=== PATIENT | female | born 1945 | race Caucasian/White ===

== ENCOUNTER → 2017-05-21 | Outpatient (CLI) | payer OTHER ==
[~2017-05-21] MED LIST: ASPIR 8181 M1; CARDURA4 MG; DIOVAN 80 MG TA80 M1; FLAGYL500 MG; TOPROL XL100 MG; XALATAN2.5 ML
--- NOTE | ~2017-05-21 | EKG ---
[address] [address] ELECTROCARDIOGRAM REPORT Name: CONNORBROWN Room #: REG RACHEAL Chaney#: [id number] Admission: 05/21/17 Attend Phys: Deondre Ware, Discharge: Date of : 43 Report #: [id number] THIS REPORT FOR: //name// [facility] Test Date: 2017-05-21 Test Time: 06:19:46 Pat Name: BROWN RYAN Department: Room: Gender: F Disc Jockey: LEIGH ANN : 1945 Requested By: Deondre Ware Order Number: [id number] MD: Corey Garcia Measurements Intervals [place] Rate: 58 P: 41 RI: 158 QRS: -41 QRSD: 93 T: 3 QT: 405 QTc: 398 Interpretive Statements Sinus rhythm Inferolateral infarct, old No previous ECG available for comparison Electronically Signed On 05-21-2017 17:17:10 CDT by Corey Garcia [email or web address] <ELECTRONICALLY SIGNED> By: Corey Garcia MD, [facility] 05/21/17 1717 0619 06 Corey Garcia MD, FACC /EPI
--- NOTE | ~2017-05-21 | O ---
[facility] [place] [address] OPERATIVE REPORT Name: BROWN RYAN [id number] Admission: 05/21/17 Attend Phys: Deondre Ware, Discharge: Date of : 43 Report #: [id number] THIS REPORT FOR: //name// CC: Nehal Ware DATE OF SERVICE: 05/21/2017 PREOPERATIVE DIAGNOSIS: Right 9 mm ureteropelvic junction stone. POSTOPERATIVE DIAGNOSIS: Right 9 mm ureteropelvic junction stone. SURGEON: Deondre Ware MD. PRINT ROOM WORKER: None. ANESTHESIA: IV sedation. FLUIDS: Please see anesthesia notes. BLOOD LOSS: None. COMPLICATIONS: None. POSTPROCEDURE STATUS: Stable. SPECIMEN: None. SURGERY: Right ESWL. FINDINGS: The patient had a radiopaque density at the level of the right ureteropelvic junction consistent with CT scan. OPERATIVE NOTE IN DETAIL: After informed consent, the patient was brought to the lithotripsy truck. She was placed in the supine position, prepped and draped, was given IV sedation in the form of fentanyl and Versed as well as preoperative ciprofloxacin. She received a total of 150 mcg of fentanyl, 2 mg of Versed during the procedure. The stone appeared to fragment nicely. She received 4000 shocks at a pulse length of 4, pulse rate of 90. Total fluoroscopy time was 2.02 minutes. The stone appeared to fragment quite well. She tolerated the procedure well. At the end, she was awoke and transferred to [facility] [address] [place] [address] OPERATIVE REPORT Name: BROWN RYAN Room #: REG CLRaghu Hyatt.#: [id number] Admission: 05/21/17 Attend Phys: Deondre Wrae, Discharge: Date of : 43 Report #: [id number] the recovery room in stable condition. All counts were correct. There were no complications. The patient tolerated the procedure well. By: 1400 1423 Deondre Ware MD /sonal
== END | disposition home or self-care (01) ==
LOC: LITH 05:54
DX: N20.1 Calculus of ureter (principal)